=== PATIENT | female | born 1950 | race Caucasian/White ===

== ENCOUNTER 2017-05-30 22:54 | Emergency (ER) | payer OTHER ==
[2017-05-31 00:26] VITALS: BP 189/86
--- NOTE | 2017-05-31 00:34 | ED SKIN/ALLERGY COMPLAINT ---
History of Present Illness General Chief Complaint: Animal/Insect Bite Stated Complaint: SPIDER BITE TO LEFT SIDE OF NECK Source: patient, old records Exam Limitations: no limitations Vital Signs & Intake/Output Vital Signs & Intake/Output Vital Signs Date Time Temp Pulse Resp B/P B/P Pulse O2 O2 Flow FiO2 Mean Ox Delivery Rate 05/31 0026 98.2 80 16 189/86 98 Room Air Room Air Allergies Coded Allergies: No Known Allergies (05/31/17) Triage Note: PT TO TRIAGE AFTER AMANDA BIT BY A SMALL BLACK SPIDER. SMALL AMOUNT OF REDNNESS PAIN AND SWELLING NOTED. PT WAS BITTEN AT 2200 Triage Nurses Notes Reviewed? yes Onset: Just prior to arrival Duration: minute(s):, constant, continues in ED Timing: recent history Location: neck Possible Factors: insect bite, insect sting No Modifying Factors: none LMP (ages 10-50): post menopausal : No Patient currently breastfeeds: No HPI: Prior to admission while laying in bed patient felt a sharp pain to the left lower neck and swatted a spider. She denies fever chills nausea vomiting diarrhea abdominal pain chest pain shortness breath headache dysuria bleeding. Past History Travel History Traveled to [place] past 21 day No Medical History Any Pertinent Medical History? see below for history Neurological: NONE EENT: NONE Cardiovascular: hypertension, hyperlipidemia Respiratory: NONE Gastrointestinal: NONE Hepatic: NONE Renal: NONE Musculoskeletal: NONE Psychiatric: NONE Endocrine: diabetes Blood Disorders: NONE Cancer(s): NONE FIELD ARTILLERY CANNONEER/Reproductive: NONE Surgical History Surgical History: non-contributory Psychosocial History What is your primary language Turkish Tobacco Use: Never used ETOH Use: denies use Illicit Drug Use: denies illicit drug use Family History Hx Contributory? No Review of Systems Review of Systems Constitutional: Reports: no symptoms. EENTM: Reports: no symptoms. Respiratory: Reports: no symptoms. Cardiovascular: Reports: no symptoms. GI: Reports: no symptoms. Genitourinary: Reports: no symptoms. Musculoskeletal: Reports: no symptoms. Neurological/Psychological: Reports: no symptoms. Hematologic/Endocrine: Reports: no symptoms. Immunologic/Allergic: Reports: no symptoms. All Other Systems: Reviewed and Negative Physical Exam Physical Exam General Appearance: well developed/nourished, mild distress Head: atraumatic Eyes: Bilateral: PERRL, EOMI. Ears, Nose, Throat: normal pharynx, normal ENT inspection, hearing grossly normal Neck: supple, no midline tenderness, patchy erythema @ left lower neck no puncture wound visualized Respiratory: normal breath sounds Cardiovascular: regular rate/rhythm Gastrointestinal: soft, non-tender Back: normal inspection Extremities: normal inspection, normal range of motion, no edema Neurologic/Psych: awake, alert, oriented x 3, normal mood/affect Reflexes: 2+: bicep (R), bicep (L). Skin: intact, rash Skin Problem Location: neck Skin Problem Character: erythema Lymphatic: no anterior cervical tucker Progress Differential Diagnosis: abscess/cellulitis, allergic reaction, contact dermatitis Plan of Care: local wound care Departure Departure Time of Disposition: 31 Disposition: HOME OR SELF CARE Condition: Stable Clinical Impression Primary Impression: Accidental spider bite Referrals: Reynaldo Bustillo MD (PCP/Family) Departure Forms: Customer Survey General Discharge Information
== END 2017-05-31 00:41 ==
LOC: ERH 22:54
DX: T63.391A Toxic effect of venom of other spider, accidental (unintentional), initial encounter (principal)